=== PATIENT | female | born 1990 | race Caucasian/White ===

== ENCOUNTER 2024-03-01 01:12 | Emergency (ER) | payer OTHER ==
[~2024-03-01] VITALS: Ht 157.5 cm; Wt 94.8 kg
[2024-03-01 01:17] VITALS: O2SAT 100
[2024-03-01] MEDS: IBUPROFEN 600MG TABLET PO ONE (03:22)
[2024-03-01] MEDS ORDERED: NAPR-1176 MT (03:31)
[2024-03-01] MEDS ORDERED: LIDO700A15 TP (03:31)
[2024-03-01 03:36] VITALS: BP 128/82; PULSE 80; RESP 16; TEMP 36.78072; O2SAT 100
== END 2024-03-01 03:37 | disposition home or self-care (01) ==
LOC: ER 01:12
DX: M25.521 Pain in right elbow (principal); Z90.49 Acquired absence of other specified parts of digestive tract; Z98.890 Other specified postprocedural states
CPT/HCPCS: 73080; 99283